=== PATIENT | female | born 1985 | race Caucasian/White ===

== ENCOUNTER 2021-01-16 10:03 | Outpatient (RCR) | payer OTHER, SELFPAY ==
[2021-01-16 12:00] VITALS: BP 143/75; PULSE 94
== END 2021-02-11 07:50 | disposition home or self-care (01) ==
LOC: ANHOBOP 10:03
PROVIDERS: Visit Provider Student in an Organized Health Care Education/Training Program
DX: O36.8130 Decreased fetal movements, third trimester, not applicable or unspecified (principal); Z3A.33 33 weeks gestation of pregnancy
CPT/HCPCS: 59025

== ENCOUNTER 2021-01-24 23:55 | Inpatient (IN) | payer OTHER, SELFPAY ==
--- NOTE | 2021-01-24 23:55 | LDADM ---
This patient, Ghazala Delaney, was admitted to Labor/Delivery/Recovery 106 on 01/25/21 at 00:14. Plans for labor, pain management and were discussed with patient. Patient/family oriented to hospital policies and general routines including ID bracelet, bed and alarms, visiting hours, pain management, procedures, bathroom and other care routines, personal items, smoking policy, room service/diet and guest tray routines, security routines, and visiting hours. Patient/Family are encouraged to report perceived risks to care and to ask questions if they do not understand what they are told or what they should do. See OBIX for further documentation.
[2021-01-25] VITALS (126 sets, daily range): BP systolic 83–154; BP diastolic 42–96; PULSE 25–134; RESP 18–20; TEMP 36.6–37.3; O2SAT 82–100; BMI 35.6
[2021-01-25] MEDS: AMPICILLIN 2 GM/NS 100 ML 2 GM/100 ML BAG IVPB (00:47)
[2021-01-25] MEDS: LACTATED RINGERS 1,000 ML 125 ML IV CONT ×2 (00:49→08:30)
[2021-01-25 00:51] LABS: Basophils Percent Auto 0.3 % (0.2-1.2); Eosinophils Absolute Auto 0.1 K/mm3 (0-0.3); Eosinophils Percent Auto 0.9 % (0-4.4); Hematocrit 36.8 % (37.0-47.0); Hemoglobin 12.2 g/dL (12.0-15.0); Immature Granulocyte Absolute 0.07 K/mm3 (0.00-0.031); Immature Granulocyte Percent A 0.9 % (0-0.5); Lymphocytes Absolute Auto 1.54 K/mm3 (0.9-3.2); Lymphocytes Percent Auto 20.4 % (18.3-44.2); Mean Corpuscular HGB Conc 33.2 g/dl (32-36); Mean Corpuscular Hemoglobin 27.7 pg (26-34); Mean Corpuscular Volume 83.4 fl (80-100); Mean Platelet Volume 12.5 fl (7.4-10.4); Monocytes Absolute Auto 0.7 K/mm3 (0.1-0.6); Monocytes Percent Auto 9.8 % (2.6-8.5); Neutrophils Absolute Auto 5.1 K/mm3 (1.3-6.7); Neutrophils Percent Auto 67.7 % (45.5-73.1); Nucleated Red Blood Cells Perc 0.3 % (0.0-0.2); Platelet Count Result 165 k/mm3 (150-375); Red Blood Count 4.41 M/mm3 (4.2-5.4); Red Cell Distribution Width 14.7 % (11.5-14.5); White Blood Count 7.5 K/mm3 (4.5-10.0)
[2021-01-25 03:25] LABS: Alanine Aminotransferase 17 U/L (4-35); Albumin Level 3.2 g/dL (3.5-5.1); Alkaline Phosphatase 190 U/L (38-126); Anion Gap 6 mmol/L (8-16); Aspartate Amino Transferase 32 U/L (14-36); Bilirubin,Total 0.1 mg/dL (0.2-1.3); Blood Urea Nitrogen 7 mg/dL (7-17); Calcium 9.8 mg/dL (8.4-10.2); Carbon Dioxide 22 mmol/L (22-30); Chloride 108 mmol/L (98-107); Estimated CRCL calculation 159 ml/min; Estimated Glomerular Filt Rate > 60; Glucose 104 mg/dL (65-110); Potassium 3.9 mmol/L (3.4-5.0); Sodium 136 mmol/L (137-145); Uric Acid 4.3 mg/dL (2.5-7.5)
[2021-01-25] MEDS: OXYTOCIN 30 UNITS/NS 500 ML 30 UNITS/500 ML BAG IV CONT (03:47)
[2021-01-25 04:06] LABS: HIV 1/2 Ab P24 Ag Result Negative (Negative)
[2021-01-25 04:20] LABS: Add Urine Microscopic? YES; Appearance Urine Clear (Clear); Bacteria Urine Trace /hpf; Bilirubin Urine Negative (Negative); Blood Urine 1+ (Negative); Color Urine Yellow (Yellow); Glucose Urine UA Negative (Negative); Ketones Urine Trace mg/dL (Negative); Leukocyte Esterase Ur Negative LEU/UL (NEGATIVE); Nitrate Urine Negative (Negative); Protein Urine Negative (Negative); Specific Grav Ur 1.013 (1.001-1.035); Squamous Epithelial Cell Urine Moderate /hpf (Few); Urobilinogen Urine Negative mg/dL (<2.0); WBC Urine 0-3 /hpf (0-3)
[2021-01-25 04:24] LABS: Total Protein Urine Random 14 mg/dL; Ur Ttl Prot Creatinine Ratio 0.13 mg/mg (0-0.20)
[2021-01-25] MEDS: AMPICILLIN 1 GM/NS 50 ML 1 GM/50 ML BAG IVPB ×3 (04:30→12:09)
--- NOTE | 2021-01-25 07:42 | WPDANESEPPF ---
Anes - Initial Pre Proc Eval Date/Time: 01/25/21 07:42 Surgeon: Corey Marie MD Pre Op Diagnosis: leaking fluid Patient Data Age: 35 Gender: F Height: 1.68 m Weight: 100 kg Last Vital Signs Temp 36.6 C 01/25/21 04:32 Pulse 105 H 01/25/21 07:01 Resp 18 01/25/21 04:32 BP 137/88 01/25/21 07:01 Allergies Allergy/AdvReac Type Severity Reaction Status Date / Time citalopram [From Celexa] Allergy Rash Verified 01/25/21 00:47 diclofenac [From Voltaren] Allergy Gastrointestinal Verified 01/25/21 00:47 Upset Dermabond AdvReac Itching Uncoded 01/25/21 04:38 Home Medications Medication Instructions Recorded Confirmed Type Lacto no.[id number]-larch 1 cap PO DAILY 01/25/21 01/25/21 History [Women's Probiotic] cetirizine [Zyrtec] 10 mg PO DAILY PRN 01/25/21 01/25/21 History cholecalciferol (vitamin D3) 25 mcg PO DAILY 01/25/21 01/25/21 History [Vitamin D3] fluoxetine 20 mg PO DAILY 01/25/21 01/25/21 History folic acid 1 mg PO DAILY 01/25/21 01/25/21 History omeprazole 20 mg PO DAILY 01/25/21 01/25/21 History vit-ferrous sulfat-FA 1 tablet PO QAM 01/25/21 01/25/21 History [] Laboratory Tests 01/25/21 01/25/21 01/25/21 00:40 00:40 00:40 WBC 7.5 K/mm3 K/mm3 (4.5-10.0) RBC 4.41 M/mm3 M/mm3 (4.2-5.4) Hgb 12.2 g/dL g/dL (12.0-15.0) Hct 36.8 % L % (37.0-47.0) MCV 83.4 fl fl (80-100) MCH 27.7 pg pg (26-34) MCHC 33.2 g/dl g/dl (32-36) RDW 14.7 % H % (11.5-14.5) Plt Count 165 k/mm3 k/mm3 (150-375) MPV 12.5 fl H fl (7.4-10.4) Immature Gran % (Auto) 0.9 % H % (0-0.5) Neut % (Auto) 67.7 % % (45.5-73.1) Lymph % (Auto) 20.4 % % (18.3-44.2) [place] % (Auto) 9.8 % H % (2.6-8.5) Eos % (Auto) 0.9 % % (0-4.4) Baso % (Auto) 0.3 % % (0.2-1.2) Lymph # (Auto) 1.54 K/mm3 K/mm3 (0.9-3.2) [place] # (Auto) 0.7 K/mm3 H K/mm3 (0.1-0.6) Eos # (Auto) 0.1 K/mm3 K/mm3 (0-0.3) Baso # (Auto) 0.0 K/mm3 K/mm3 (0.0-0.1) Abs Immat Gran (auto) 0.07 K/mm3 H K/mm3 (0.00-0.031) Absolute Neuts (auto) 5.1 K/mm3 K/mm3 (1.3-6.7) Absolute Nucleated RBC 0.0 K/mm3 K/mm3 (0.0-0.012) Nucleated RBC % 0.3 % H % (0.0-0.2) Sodium Potassium Chloride Carbon Dioxide Anion Gap BUN Creatinine Estim Creat Clear Calc Estimated GFR Glucose Uric Acid Calcium Total Bilirubin AST ALT Alkaline Phosphatase Total Protein Albumin Urine Color Urine Appearance Urine pH Ur Specific [place] Urine Protein Urine Glucose (UA) Urine Ketones Ur Blood (Man) Urine Nitrate Urine Bilirubin Urine Urobilinogen Ur Leukocyte Esterase Urine RBC Urine WBC Ur Squamous Epith Cells Urine Bacteria U Random Total Protein Urine Creatinine Protein/Creat Ratio 2 RPR Pending HIV 1&2 Ab/P24 Ag 4thGn Blood Type O Positive Antibody Screen Negative 01/25/21 01/25/21 01/25/21 00:40 00:40 04:01 WBC RBC Hgb Hct MCV MCH MCHC RDW Plt Count MPV Immature Gran % (Auto) Neut % (Auto) Lymph % (Auto) [place] % (Auto) Eos % (Auto) Baso % (Auto) Lymph # (Auto) [place] # (Auto)
[2021-01-25 08:52] LABS: Rapid Plasma Reagin Non-Reactive (NonReactive)
--- NOTE | 2021-01-25 09:00 | WPDOBADMIT ---
Obstetrics - Admit Note Admission Note: record reviewed. Additions to the history and/or subsequent changes in the physical findings follow. 35 y/o at 35 weeks gestation who presented to the hospital after SROM at home around 2100. After about six hours, labor augmentation was administered with oxytocin. She received ampicillin for unknown GBS in the . She is now comfortable with epidural. AVSS NST reactive TOCO contractions every 3-5 min ABD soft, nontender, gravid, vertex EXT nontender Cervix 4/80/-2. Vertex. A: IUP at 35 weeks with SROM P: Augmenting labor. Anticipate .
[2021-01-25] MEDS: ONDANSETRON INJ 4 MG/2 ML VIAL IV PUSH (11:03)
--- NOTE | 2021-01-25 16:07 | PM.OBPRVD ---
OB - Delivery Note Procedure Delivery date: 01/25/21 Procedure: events: Labor < 37 Weeks Intrapartal events: None Induction method: none Delivery augmentation: pitocin Delivery monitor: external FHT, external uterine and internal uterine Route of delivery: Laceration Description: Perineal - 2nd Degree Delivery repair: vicryl (3-0) Specimen: Yes (cord blood, placenta) Quantitative Blood Loss (ml): 310 Anesthesia type: Epidural Disposition: PACU Complications: None Narrative: 35 y/o at 35 weeks gestation who presented to the hospital after a gush of fluid. SROM was diagnosed. She was given ampicillin for GBS unknown status in the . Labor was subsequently augmented with oxytocin. She received an epidural for pain control. Her labor progressed and her cervix dilated completely. She pushed with good effort and delivered the 's head to the perineum from occiput posterior position, followed by the body. The nose and mouth were bulb suctioned. After a delay, the cord was clamped and cut. The infant was handed off the field. Cord blood was collected. The placenta delivered spontaneously and was grossly normal in appearance. The usual 3 vessel cord was noted. A second degree midline perineal laceration was sustained. This was reapproximated using 3 0 Vicryl in the usual layered fashion. Excellent hemostasis resulted as did excellent reapproximation of the normal anatomy. Needle and instrument counts were correct. The patient was taken to recovery room in stable condition. The infant went to the nursery in stable condition. I was present and scrubbed for the entire delivery. Baby Date of : 01/25/21 Time of : 15:46 Weeks of gestation at delivery: 35 Infant gender: Male Weight (pounds): 7 Weight (ounces): 4 presentation: vertex Placenta delivery description: Spontaneous and Normal Configuration cord vessel description: 3 Vessels and Delayed Cord Clamping score one minute: 4 score five minutes: 5 score ten minutes: 8
[2021-01-25] MEDS: OXYTOCIN 30 UNITS/NS 500 ML 30 UNITS/500 ML BAG 125 UNITS IV CONT (16:28)
[2021-01-25] MEDS: IBUPROFEN 600 MG TABLET PO (16:48)
[2021-01-25] MEDS: BENZOCAINE 20% AER SPR (*SP) 56 GM CAN 1 SPRAY TOPICAL (18:03)
[2021-01-25] MEDS: WITCH HAZEL 40 PADS 1 PAD TOPICAL (18:03)
--- NOTE | 2021-01-25 18:32 | PM.OBDSVD ---
DS: Admitting Diagnosis Discharge Date 01/26/21 Admitting Diagnosis IUP at 35 weeks SROM DS: Discharge Diagnosis Discharge Diagnosis (1) delivery: Code(s): O60.10X0 - labor with delivery, unspecified trimester, not applicable or unspecified Status: Acute OB - DS: Summary OB Procedures : PTL Mgmt OB Procedures Intrapartum: Spontaneous Vag Delivery OB Procedures: : None DS: Data Data Completed and Pending Labs on day of discharge: Labs from last 24 hours 01/25/21 01/25/21 01/25/21 04:01 04:01 00:40 WBC RBC Hgb Hct MCV MCH MCHC RDW Plt Count MPV Immature Gran % (Auto) Neut % (Auto) Lymph % (Auto) [place] % (Auto) Eos % (Auto) Baso % (Auto) Lymph # (Auto) [place] # (Auto) Eos # (Auto) Baso # (Auto) Abs Immat Gran (auto) Absolute Neuts (auto) Absolute Nucleated RBC Nucleated RBC % Sodium Potassium Chloride Carbon Dioxide Anion Gap BUN Creatinine Estim Creat Clear Calc Estimated GFR Glucose Uric Acid Calcium Total Bilirubin AST ALT Alkaline Phosphatase Total Protein Albumin Urine Color Yellow Urine Appearance Clear Urine pH 6.0 Ur Specific [place] 1.013 Urine Protein Negative Urine Glucose (UA) Negative Urine Ketones Trace Ur Blood (Man) 1+ H Urine Nitrate Negative Urine Bilirubin Negative Urine Urobilinogen Negative Ur Leukocyte Esterase Negative Urine RBC 11-20 H Urine WBC 0-3 Ur Squamous Epith Cells Moderate H Urine Bacteria Trace U Random Total Protein 14 Urine Creatinine 105.0 Protein/Creat Ratio 2 0.13 RPR HIV 1&2 Ab/P24 Ag 4thGn Negative Blood Type Antibody Screen 01/25/21 01/25/21 01/25/21 00:40 00:40 00:40 WBC RBC Hgb Hct MCV MCH MCHC RDW Plt Count MPV Immature Gran % (Auto) Neut % (Auto) Lymph % (Auto) [place] % (Auto) Eos % (Auto) Baso % (Auto) Lymph # (Auto) [place] # (Auto) Eos # (Auto) Baso # (Auto) Abs Immat Gran (auto) Absolute Neuts (auto) Absolute Nucleated RBC Nucleated RBC % Sodium 136 L Potassium 3.9 Chloride 108 H Carbon Dioxide 22 Anion Gap 6 L BUN 7 Creatinine 0.50 L Estim Creat Clear Calc 159 Estimated GFR > 60 Glucose 104 Uric Acid 4.3 Calcium 9.8 Total Bilirubin 0.1 L AST 32 ALT 17 Alkaline Phosphatase 190 H Total Protein 6.0 L Albumin 3.2 L Urine Color Urine Appearance Urine pH Ur Specific [place] Urine Protein Urine Glucose (UA) Urine Ketones Ur Blood (Man) Urine Nitrate Urine Bilirubin Urine Urobilinogen Ur Leukocyte Esterase Urine RBC Urine WBC Ur Squamous Epith Cells Urine Bacteria U Random Total Protein Urine Creatinine Protein/Creat Ratio 2 RPR Non-reactive HIV 1&2 Ab/P24 Ag 4thGn Blood Type O Positive Antibody Screen Negative 01/25/21 00:40 WBC 7.5 RBC 4.41 Hgb 12.2 Hct 36.8 L MCV 83.4 MCH 27.7 MCHC 33.2 RDW 14.7 H Plt Count 165 MPV 12.5 H Immature Gran % (Auto) 0.9 H Neut % (Auto) 67.7 Lymph % (Auto) 20.4 [place] % (Auto) 9.8 H Eos % (Auto) 0.9 Baso % (Auto) 0.3 Lymph # (Auto) 1.54 [place] # (Auto) 0.7 H Eos # (Auto) 0.1 Baso # (Auto) 0.0 Abs Immat Gran (auto) 0.07 H Absolute Neuts (auto) 5.1 Absolute Nucleated RBC 0.0 Nucleated RBC % 0.3 H Sodium Potassium Chloride Carbon Dioxide Anion Gap BUN Creatinine Estim Creat Clear Calc Estimated GFR Glucose Uric Acid Calcium Total Bilirubin AST ALT Alkaline Phosphatase Total Protein Albumin Urine Color Urine Appearance Urine pH Ur Specific [place] Urine Protein Urine Glucose (UA) Urine Ketones Ur Blood (Man) Urine Nitrate Urine Bilirubin Urine Urobilinogen
--- NOTE | 2021-01-25 18:46 | OBPPTRN ---
Patient transferred to post room #281 via wheelchair. Support person present. Oriented to unit, room, information board, rooming in, admission packet and security measures. Patient verbalizes understanding.
[2021-01-25] MEDS: ACETAMINOPHEN 325 MG TABLET 650 MG PO (20:33)
--- NOTE | 2021-01-25 20:50 | PC.NURSE ---
[facility] at bedside with .
--- NOTE | 2021-01-25 23:00 | PC.NURSE ---
Mother's H&P and documents faxed to [facility] as requested.
[2021-01-26] MEDS: IBUPROFEN 600 MG TABLET PO (02:51)
[2021-01-26 03:28] VITALS: BP 115/52; PULSE 85; RESP 18; TEMP 36.8
[2021-01-26 04:44] LABS: Hematocrit 32.9 % (37.0-47.0); Hemoglobin 10.5 g/dL (12.0-15.0)
[2021-01-26 06:45] VITALS: BP 141/87; PULSE 86; RESP 20; TEMP 36.7
--- NOTE | 2021-01-26 08:44 | WPDANLDPN2 ---
Anes-Prog Note L&D Date/Time: 01/26/21 08:44 Comfortable throughout: labor and delivery Neuraxial method: epidural Epidural/Spinal procedure site: tender Neuro status: Neuro function grossly intact. Cardiovascular status: normal Respiratory status: normal Airway patency: baseline Mental status: baseline Post-Op hydration status: normal Vital Signs: Last Vital Signs Temp 98.1 F 01/26/21 06:45 Pulse 86 01/26/21 06:45 Resp 20 01/26/21 06:45 BP 141/87 H 01/26/21 06:45 Pulse Ox 84 L 01/25/21 15:46 Pain score (VAS): 0 I/O: Intake & Output 01/25/21 01/26/21 01/26/21 23:59 07:59 15:59 Intake Total 1800 Output Total 416 Balance 1384 Patient feedback: Patient satisfied with anesthetic care.
--- NOTE | 2021-01-26 10:05 | PM.OBPNVD ---
OB - PN: Subj Subjective Date/time seen: 01/26/21 10:05 Narrative: Pain OK. Baby was transferred to [facility]. She would like to be discharged. OB - PN: Obj Data Labs CBC & Chem 7: 01/26/21 02:57 01/25/21 00:40 Labs: Laboratory Results - last 24 hr 01/26/21 02:57 Hgb 10.5 L Hct 32.9 L OB - PN A/P Plan Comments: A: PPD#1, doing well. P: Home to f/u 6 weeks. Exam Psych: Other: AVSS ABD soft, nontender, fundus firm EXT nontender
== END 2021-01-26 11:36 | disposition home or self-care (01) | DRG 807 ==
LOC: ANHLDR 01-25 18:34 → ANHOB2 01-26 11:04 → ANHLDR 01-29 09:51 → ANHOB2 01-29 09:51
PROVIDERS: Admitting Provider Obstetrics & Gynecology; Visit Provider Obstetrics & Gynecology
DX: O60.14X0 Preterm labor third trimester with preterm delivery third trimester, not applicable or unspecified (principal); Z37.0 Single live birth; O70.1 Second degree perineal laceration during delivery; O76 Abnormality in fetal heart rate and rhythm complicating labor and delivery; Z3A.35 35 weeks gestation of pregnancy
CPT/HCPCS: 36415; 80053; 81001; 82570; 84112; 84156; 84550; 85014; 85018; 85025; 86592; 86703; 86850; 86900; 86901; 87086; 87088; A9270; G0432; J0290; J2405; J2590; J2795; J7120